=== PATIENT | female | born 2000 | race Hispanic/Latino ===

== ENCOUNTER 2024-09-13 12:41 | Outpatient (CLI) | payer OTHER, SELFPAY ==
[2024-09-13 13:50] LABS: SARS-CoV-2 RNA PCR Negative (Negative)
[2024-09-16 16:38] LABS: Herpes Simplex Type 1 DNA PCR Not Detected (Not Detected); Herpes Simplex Type 2 DNA PCR Not Detected (Not Detected)
== END 2024-09-13 12:42 | disposition home or self-care (01) ==
LOC: ANHLAB 12:43
PROVIDERS: PCP Family Medicine; Visit Provider Physician Assistant Medical
DX: Z20.822 Contact with and (suspected) exposure to COVID-19 (principal); R50.9 Fever, unspecified; J02.9 Acute pharyngitis, unspecified; B00.1 Herpesviral vesicular dermatitis
CPT/HCPCS: 36415; 87529; 87635